=== PATIENT | male | born 1995 | race Caucasian/White ===

== ENCOUNTER 2018-07-12 09:25 | Emergency (ER) | payer SELFPAY ==
[2018-07-12] MEDS ORDERED: Ketorolac 60 MG/2 ML SDV IM ONE (10:12)
[2018-07-12] MEDS ORDERED: Diphtheria,Pertussis(Acell),Tetanus Vaccine 0.5 ML Syringe IM ONE (10:12)
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
== END 2018-07-12 12:05 | disposition home or self-care (01) ==
LOC: MW.ED 09:25
DX: S09.90XA Unspecified injury of head, initial encounter (principal); M54.5 Low back pain; Z88.2 Allergy status to sulfonamides; V86.59XA Driver of other special all-terrain or other off-road motor vehicle injured in nontraffic accident, initial encounter
CPT/HCPCS: 70450; 70486; 72125; 72131; 72170; 90471; 90715; 96372; 99284; J1885; 99283

== ENCOUNTER 2020-02-05 04:41 | Emergency (ER) | payer SELFPAY ==
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
== END 2020-02-05 05:56 | disposition home or self-care (01) ==
LOC: MW.ED 04:41
DX: S02.2XXA Fracture of nasal bones, initial encounter for closed fracture (principal); Z88.2 Allergy status to sulfonamides; W22.8XXA Striking against or struck by other objects, initial encounter
CPT/HCPCS: 70486; 70486-26; 82962; 99282; 99284-25